=== PATIENT | male | born 1995 | race Caucasian/White ===

== ENCOUNTER 2017-02-15 00:07 | Emergency (ER) | payer OTHER ==
[~2017-02-15] VITALS: Ht 182.9 cm; Wt 81.2 kg
[~2017-02-15 00:07] MED LIST: MINO100T PO
[2017-02-15 00:11] VITALS: TEMP 36.5; Ht 182.9 cm; Wt 81.2 kg
--- NOTE | 2017-02-15 00:58 | EMERGENCY ROOM VISIT NOTE ---
ED Visit Note First contact with patient: 00:18 Chief Complaint: Broken Finger on LEFT Hand History of Present Illness: Patient is a 22-year-old male who presents to the emergency department by private vehicle with friends for evaluation of a fracture of his LEFT middle finger. He was wrestling with friends when he stubbed his finger resulting in immediate pain and deformity. He reports no history of fracture or injury to the affected digit. He rates his current discomfort as 5/10. The patient does report some numbness to the tip of the finger. He denies any associated hand pain, wrist pain, or forearm pain. He does admit to drinking alcohol this evening. Medications: No current medications. Allergies: Cefprozil PMH: No pertinent past medical history. SHx: Patient is a 22-year-old [employer] student who lives with roommates. ROS: All pertinent positive and negative review of systems are appropriately documented in the History of Present Illness. Physical Exam: VITAL SIGNS - Vital signs and nursing notes were reviewed. GENERAL - 22-year-old male appearing his stated age and in noticeable discomfort throughout the exam. MUSCULOSKELETAL -obvious deformity and dislocation noted at the PIP joint of the LEFT third digit. Decreased range of motion secondary to dislocation and injury. No tenderness over the MCP joint. No tenderness extending into the carpals. No point-tenderness over the anatomic snuffbox. NEUROLOGIC - SENSORY: Spinothalamic tract was found to be intact with ability to discriminate sharp versus dull sensation at the level of the LEFT elbow down to the fingertips. No sensory deficits of the dorsal column were appreciated utilizing light touch for evaluation. VASCULAR - Capillary refill was brisk. +3/5 radial pulse palpated. IMAGING: Left third finger 3 VIEWS CLINICAL HISTORY: Pain status post trauma COMPARISON: None. DISCUSSION: There is a dorsal dislocation at the level the proximal interphalangeal joint. No acute fractures are visualized. IMPRESSION: Dorsal dislocation at the level of the proximal interphalangeal joint LEFT THIRD FINGER 3 VIEWS CLINICAL HISTORY: Post reduction study dislocation COMPARISON: Earlier in the evening DISCUSSION: There has been interval reduction of the previously described dislocation. No acute fractures are visualized. IMPRESSION: Interval reduction of the previously described dislocation. ED Course: Patient was seen and evaluated by myself. X-ray of the affected finger was obtained and reviewed by myself. Verbal consent was obtained prior to performing the procedure. The patient declines the use of lidocaine for digital block. Utilizing traction countertraction, the PIP joint was easily reduced. The patient had return for range of motion. Repeat x-ray demonstrates anatomic alignment. The patient was placed in a metal splint for comfort. The patient remainder was intact pre-and post-splint to. Patient will follow-up with nursing services orthopedic surgery for continued management. He will return for any changing or worsening symptoms. Patient discharged home in good condition. In the evaluation and treatment of this patient, the following differential diagnoses were considered: Finger Fracture, Finger Dislocation, Finger Sprain, Finger Contusion, Jersey Finger, or Mallet Finger. Impression: LEFT 3rd Digit PIP Dislocation - Reduced Discharge Instructions: You've been seen in the emergency department today for your LEFT middle finger dislocation. Please wear the splint for comfort for the next week. For pain control, you can use the following [id number]-qetunas medicines (if >12 yo): - Regular strength (325mg/tab) Tylenol (acetaminophen) 2 tabs every 4-6 hours as needed. Do not exceed 12 tablets in a 24 hour period. Avoid taking more than 4 grams (4000 mg) of Tylenol per day. This includes any other sources of acetaminophen you may take on a regular basis. - Regular strength (200 mg/tab) Advil (ibuprofen) 1-2 tabs every 4-6 hours as needed. Do not exceed a dose of 3200 mg per day. Follow-up with [facility] or your orthopedic surgeon in the next week if your symptoms are not improving. Return for any changing or worsening symptoms. Problem List Medical Problems: (1) No significant medical problems Status: Chronic Surgical Problems: (1) No significant past surgical history Status: Chronic Current/Historical Medications Scheduled Minocycline Hcl (Minocycline Hcl), 1 TAB PO DAILY Allergies Coded Allergies: Cefprozil (Verified Allergy, Unknown, UNKNOWN-CHILDHOOD, 08/13/15) Vital Signs Date Time Temp Pulse Resp B/P Pulse Ox O2 Delivery O2 Flow Rate FiO2 02/15/17 01:08 67 20 132/64 99 02/15/17 00:11 36.5 98 18 129/51 95 Room Air Departure Information Impression Primary Impression: Finger dislocation Dispostion Home / Self-Care Condition GOOD Referrals No Doctor, Assigned (PCP) Patient Instructions ED Dislocation Finger [place], [facility] Additional Instructions You've been seen in the emergency department today for your LEFT middle finger dislocation. Please wear the splint for comfort for the next week. For pain control, you can use the following yihb-apk-xkyahrd medicines (if >12 yo): - Regular strength (325mg/tab) Tylenol (acetaminophen) 2 tabs every 4-6 hours as needed. Do not exceed 12 tablets in a 24 hour period. Avoid taking more than 4 grams (4000 mg) of Tylenol per day. This includes any other sources of acetaminophen you may take on a regular basis. - Regular strength (200 mg/tab) Advil (ibuprofen) 1-2 tabs every 4-6 hours as needed. Do not exceed a dose of 3200 mg per day. Follow-up with [facility] or your orthopedic surgeon in the next week if your symptoms are not improving. Return for any changing or worsening symptoms. Problem Qualifiers Primary Impression: Finger dislocation Encounter type: initial encounter Qualified Codes: S63.259A - Unspecified dislocation of unspecified finger, initial encounter
[2017-02-15 01:08] VITALS: BP 132/64; PULSE 67; O2SAT 99
--- NOTE | 2017-02-15 06:57 | DIAGNOSTIC IMAGING REPORT ---
Left third finger 3 VIEWS CLINICAL HISTORY: Pain status post trauma COMPARISON: None. DISCUSSION: There is a dorsal dislocation at the level the proximal interphalangeal joint. No acute fractures are visualized. IMPRESSION: Dorsal dislocation at the level of the proximal interphalangeal joint Electronically signed by: Leodan Redman M.D. 02/15/2017 6:54 AM Dictated Date/Time: 02/15/2017 6:53 AM
--- NOTE | 2017-02-15 06:57 | DIAGNOSTIC IMAGING REPORT ---
LEFT THIRD FINGER 3 VIEWS CLINICAL HISTORY: Post reduction study dislocation COMPARISON: Earlier in the evening DISCUSSION: There has been interval reduction of the previously described dislocation. No acute fractures are visualized. IMPRESSION: Interval reduction of the previously described dislocation. Electronically signed by: Leodan Redman M.D. 02/15/2017 6:55 AM Dictated Date/Time: 02/15/2017 6:55 AM
== END 2017-02-15 01:10 | disposition home or self-care (01) ==
LOC: C.EDB 00:09
DX: M79.642 Pain in left hand (principal)